=== PATIENT | female | born 1965 | race Caucasian/White ===

== ENCOUNTER 2019-07-05 09:36 | Day surgery (SDC) | payer BC ==
[2019-07-05] MEDS ORDERED: LIDOCAINE 2% MDV (20MG/ML) 20ML VIAL IV ONE (09:37)
[2019-07-05] MEDS ORDERED: PROPOFOL 10 MG/ML VIAL IV ONE (09:37)
--- NOTE | 2019-07-06 13:10 | Operative Note ---
OPERATION: Screening COLONOSCOPY. PREOPERATIVE DIAGNOSIS: Colon cancer screening, average risk. POSTOPERATIVE DIAGNOSIS: Normal exam. PROCEDURE: After informed consent was obtained from the patient, she was placed in the left lateral decubitus position in the endoscopy suite, sedated and monitored by the department of anesthesia. Digital rectal examination was unremarkable. A well-lubricated [id number] colonoscope was inserted into the rectum and advanced to the cecum. The cecum, cecal bulb, ileocecal valve, appendiceal orifice, ascending colon, transverse colon, descending colon, sigmoid colon, and rectum were free of inflammatory changes, mass lesions, or polyps. The rectum was unremarkable in forward and in J-turn views. The endoscope was straightened, the rectal ampulla deflated, and the endoscope was removed. RECOMMENDATIONS: I would suggest the patient resume her medications and diet. She should undergo repeat exam in 10 years or sooner should symptoms warrant. As always, thank you for allowing me to participate in the healthcare of your patients. LUIS FERNANDO
== END 2019-07-05 12:05 | disposition home or self-care (01) ==
LOC: HOP 09:36
PROVIDERS: ATTEND Internal Medicine Gastroenterology
DX: Z12.11 Encounter for screening for malignant neoplasm of colon (principal)
CPT/HCPCS: 00812; G0121